=== PATIENT | male | born 1930 | race Caucasian/White ===

== ENCOUNTER 2019-03-31 11:42 | Emergency (ER) | payer MEDICARE ==
[~2019-03-31] VITALS: Ht 187.9 cm; Wt 89.6 kg
[2019-03-31] MEDS ORDERED: LIDOCAINE 1% INJ 20 ML 20 ML VIAL ONE (11:48)
--- NOTE | 2019-03-31 12:10 | ED Upper Extremity ---
General Chief Complaint: Laceration Stated Complaint: LT THUMB LAC History of Present Illness Date Seen by Provider: Mar 31, 2019 Time Seen by Provider: 11:30 Initial Comments Patient was opening a can and the lid came back and cut him in the web between the thumb and index finger of the left hand on the dorsal side. Approximate 2.5 cm laceration small skin tear where he pulled the tape back Onset: just prior to arrival Pain/Injury Location: left hand Method of Injury: incised Modifying Factors: Improves With Movement Allergies and Home Medications Patient Home Medication List Home Medication List Reviewed: Yes Review of Systems Constitutional: No dizziness, No fever, No weakness Musculoskeletal: No muscle pain, No muscle stiffness, No muscle weakness Skin: other (2.5 cm laceration dorsum left thumb web) Past Lxwtcir-Oaqmcg-Npuawx Hx Past Med/Social Hx: Reviewed Nursing Past Med/Soc Hx Patient Social History Alcohol Use: Denies Use Recreational Drug Use: No Smoking Status: Never a Smoker 2nd Hand Smoke Exposure: No Recent Foreign Travel: No Recent Hopitalizations: No Physical Abuse: No Sexual Abuse: No Mistreated: No Immunizations Up To Date Tetanus Booster (TDap): More than 5yrs Seasonal Allergies Seasonal Allergies: No Past Medical History Surgeries: Yes (AAA repair) Gallbladder, Orthopedic Respiratory: No Cardiac: Yes (AAA) Aneurysm Genitourinary: No Gastrointestinal: No Musculoskeletal: No Endocrine: No HEENT: No Cancer: No Psychosocial: No Integumentary: No Blood Disorders: No Physical Exam Vital Signs Capillary Refill : Height, Weight, BMI Height: '" Weight: lbs. oz. kg; BMI Method: General Appearance: WD/WN, no apparent distress Wrist: Yes normal inspection Hand: laceration (2.5 cm laceration left thumb web dorsum) Neurologic/Tendon: normal sensation, normal motor functions Neurologic/Psychiatric: no motor/sensory deficits, oriented x 3 Skin: normal color, warm/dry Procedures/Interventions Wound Location: Upper Extremities Wound Length (cm): 2.5 Wound's Depth, Shape: into muscle Wound Explored: clean Irrigated w/ Saline (ccs): 100 Anesthesia: 1% Lidocaine Suture: Ethlion Suture Size: 4-0 Number of Sutures: 5 #5 interrupted sutures are placed with good approximation and hemostasis instructions Progress/Results/Core Measures Results/Orders My Orders Orders - REMY JAVIER JR, MD Lidocaine 1% Inj 20 Ml (Xylocaine 1% Inj (03/31/19 11:48) Departure Impression Primary Impression: Laceration of left hand Qualified Codes: S61.412A - Laceration without foreign body of left hand, initial encounter Disposition: HOME, SELF-CARE Condition: Stable Departure-Patient Inst. Referrals: SELF,[facility] (PCP/Family) Primary Care Physician Patient Instructions: Laceration Repair With Stitches (DC) Add. Discharge Instructions: Sutures out in 10 days All discharge instructions reviewed with patient and/or family. Voiced understanding. REMY JAVIER JR, MD Mar 31, 2019 12:10
[2019-03-31] MEDS ORDERED: TETANUS,DIPTH,PERTUSS P/F (BOOSTRIX) 0.5 ML VIAL IM ONE (12:15)
[2019-03-31] MEDS ORDERED: TETANUS & DIPHTHERIA TOX,ADULT 0.5 ML (TENIVAC) IM ONE (12:15)
[2019-03-31] MEDS ORDERED: LIDOCAINE 1% INJ 20 ML 20 ML VIAL INJ ONE (12:15)
[2019-03-31 12:25] VITALS: BP 136/81
== END 2019-03-31 12:25 | disposition home or self-care (01) ==
LOC: ER FS 11:44
DX: S61.412A Laceration without foreign body of left hand, initial encounter (principal); Z23 Encounter for immunization; W26.8XXA Contact with other sharp object(s), not elsewhere classified, initial encounter
CPT/HCPCS: 12002; 64450; 90471; 90715

== ENCOUNTER 2019-04-10 09:54 | Emergency (ER) | payer MEDICARE ==
--- NOTE | 2019-04-10 10:04 | ED Suture Removal/Wound Check ---
Suture/Wound Re-check Suture Removal/Wound Recheck : Suture Removal/Wound Recheck: Sutures removed by RN General Appearance: WD/WN, no apparent distress Neuro/Tendon: normal sensation, normal motor functions, normal tendon functions Skin Exam: normal color, warm/dry Physical Exam Vital Signs Capillary Refill : General Appearance: WD/WN, no apparent distress Cardiovascular: normal peripheral pulses Extremities: normal range of motion, non-tender, normal capillary refill Neurologic/Psychiatric: no motor/sensory deficits, alert, normal mood/affect, oriented x 3 Skin: warm/dry, other (mild redness around healing wound. laceration appears well healed without fluctuance or dehiscence. ) Departure Impression Primary Impression: Encounter for removal of sutures Disposition: HOME, SELF-CARE Condition: Stable Departure-Patient Inst. Decision time for Depature: 10:07 Referrals: SELFEDU MD (PCP/Family) Primary Care Physician Patient Instructions: SUTURE REMOVAL - UNCOMPLICATED Add. Discharge Instructions: All discharge instructions reviewed with patient and/or family. Voiced understanding. MIYA HSASAN MD Apr 10, 2019 10:04
[2019-04-10 10:14] VITALS: BP 130/87
== END 2019-04-10 10:14 | disposition home or self-care (01) ==
LOC: EDUNIT# 09:54 → ER FS 09:55
DX: S61.412D Laceration without foreign body of left hand, subsequent encounter (principal); X58.XXXD Exposure to other specified factors, subsequent encounter

== ENCOUNTER → 2020-07-14 | Outpatient (CLI) | payer MEDICARE ==
--- NOTE | 2020-07-14 16:55 | Diagnostic Imaging Report ---
INDICATION: Left hip fracture IMPRESSION: 2 views of the left hip show postsurgical changes from internal fixation of a comminuted intertrochanteric fracture of the left hip. There is avulsion of the lesser trochanter and slight lateral displacement of the greater trochanter. Dictated by: Dictated on workstation # [id number]
== END ==
LOC: RAD FS 14:19
PROVIDERS: ATTEND Family Medicine
DX: Z98.1 Arthrodesis status (principal); Z87.81 Personal history of (healed) traumatic fracture
CPT/HCPCS: 73502